=== PATIENT | female | born 1975 | race Two or more races ===

== ENCOUNTER 2017-06-09 01:36 | Inpatient (IN) | payer OTHER ==
[2017-06-09] MEDS ORDERED: DEXTROSE 5%-LACTATED RINGERS 1,000 ML IV SCH ×3 (02:00→07:45)
[2017-06-09 03:38] LABS: BASOPHIL 0.5 % (0-2.0); EOSINOPHIL 0.7 % (0-4.5); MCH 31.5 pg (25.7-33.7); MCHC 34.3 g/dl (32.0-36.0); MEAN CELL VOLUME 91.8 fl (80-96); MEAN PLT VOLUME 9.6 fl (7.5-11.1); NEUTROPHILS 58.8 % (42.8-82.8); PLATELET COUNT 158 K/MM3 (134-434); RDW 13.8 % (11.6-15.6); WHITE BLOOD COUNT 5.6 K/mm3 (4.0-10.0)
[2017-06-09 03:47] VITALS: BMI 28.6
[2017-06-09 03:55] LABS: INR 0.92 (0.82-1.09); PROTHROMBIN TIME (PATIENT) 10.1 SEC (9.98-11.88)
[2017-06-09 03:57] LABS: ACTIVATED PTT 28.3 SECONDS (26.9-34.4)
[2017-06-09 03:59] LABS: ANION GAP 12 (8-16); CALCIUM 8.8 mg/dL (8.5-10.1); CO2 21 mmol/L (21-32); CREATININE 0.8 mg/dL (0.55-1.02); GLUCOSE,RANDOM 108 mg/dL (74-106)
[2017-06-09 04:18] LABS: HIV 1 & 2 AB NEGATIVE; HIV 1 AGp24 NEGATIVE
[2017-06-09] MEDS ORDERED: DINOPROSTONE 10 MG VAGINAL SUPPOSITORY VG ONE ×2 (07:20→22:20)
[2017-06-09] MEDS ORDERED: PROMETHAZINE HCL 25 MG/1 ML VIAL IVPUSH ONE (07:36)
[2017-06-09] MEDS ORDERED: BUTORPHANOL TARTRATE 1 MG/ML VIAL IVPB ONE (07:36)
--- NOTE | 2017-06-09 07:47 | HP ---
Past Medical History - Primary Care Physician PCP:: Shelby Hartman - Admission Chief Complaint: 41 yrs , 40.4 weeks IUP, admitted for induction of labor, sent from [facility]. pt arrived in AM c/o pain , but uc are no longer felt History of Present Illness: PNC at [facility] . Wt gain 17 lbs Work UP : O Pos, Rpr nr, Rubella immune, Hbsag Neg, Quantiferon neg, Pap NILM, Gc/Ct neg, , , HIV neg, 1 Hr Gtt 100 GBS neg , , sickle neg, AMA seen by MFM , records of sono not available. NT screen AFP or Materna-T21 results unknown MD notes mention sono on 02/08 sono 23.2 weeks 52%tile growth, no longer previa EDC assigned 06/05/2017 03/29/17 sono 30.2 weeks, , post, marginal previa, , efw47%tile 04/19/17 sono 33.2 , 75%tile, , no longer previa, lo lying placenta post 05/10. sono 36.2 weeks, 76%tile growth, no longer lo lying placenta 06/05/17 sono not available History Source: Patient, Medical Record - Past Medical History MANAGER MERCHANDISING: No: Migraine, Seizure Cardiovascular: No: HTN Pulmonary: No: Asthma, COPD Gastrointestinal: Yes: Constipation Hepatobiliary: No: Hepatitis B Renal/: No: UTI ...: 8 ...Para: 3 ...Term: 3 ...: 0 ...Spon : 0 ...Induced : 4 ...Multiple Gestation: 0 ...LMP: 06/16/16 (mistaken dates ) ...EDC by Sono: 06/05/17 (40.4 weeks ) Additional OB History: G1 1996 Ind Ab 8 weeks. G2 05/08/1998 40 weeks, 6' .NCB epidural taken. G3 1999 Ind ab 4 weks. G4 04/26/2001 40 weeks, 6'15 " [facility], [place]. G5 2005 Ind Ab. G6 06/29/2008 40 weeks, 6'2" Home Delivery, [place]. G7 2011 Ind Ab Heme/Onc: Yes: Anemia, Other (h/o Vit D Deff). No: Sickle Cell Trait Infectious Disease: No: AIDS, HIV, STD's, Tuberculosis Psych: No: Addictions, Anxiety, Bipolar, Depression, Panic Endocrine: No: Diabetes Mellitus, Hyperthyroidism, Hypothyroidism - Past Surgical History Past Surgical History: Yes: None Hx Myomectomy: No Hx Transabdominal Cerclage: No - Smoking History Smoking history: Never smoked Have you smoked in the past 12 months: No - Alcohol/Substance Use Hx Alcohol Use: No History of Substance Use: reports: None Home Medications - Allergies Allergies/Adverse Reactions: Allergies Allergy/AdvReac Type Severity Reaction Status Date / Time No Known Allergies Allergy Verified 06/09/17 03:01 - Home Medications Home Medications: Ambulatory Orders Vit/Iron Fumarate/FA [ Tablet] 1 each PO DAILY 06/09/17 Physical Exam - Maternity Vital Signs: Vital Signs Temperature 98.0 F 06/09/17 07:00 Pulse Rate 74 06/09/17 07:00 Respiratory Rate 18 06/09/17 07:00 Blood Pressure 107/69 06/09/17 07:00 O2 Sat by Pulse Oximetry (%) Constitutional: Yes: Well Nourished Eyes: Yes: WNL HENT: Yes: WNL, Normocephalic Neck: Yes: WNL, Trachea Midline Cardiovascular: Yes: WNL, Regular Rate and Rhythm Lungs: Clear to auscultation Breast(s): Yes: WNL - Abdominal Exam/OB Fundal Height: 40 Number of Fetuses: Single Presentation: Vertex Contractions: No Regularity: Irregular Intensity: Mild Monitor Mode: External Heart Rate (range): 140 Heart Rate Location: [facility] Category: I Accelerations: Uniform Decelerations: None - Vaginal Exam/OB Vaginal Bleediing: No Speculum Exam: No Dilatation (cm): close Effacement (%): 50 Amniotic Membrane Status: Intact Presentation: Vertex/Position Station: -3 - Physical Exam Musculoskeletal: Yes: WNL Extremities: Yes: WNL. No: Calf Tenderness Edema: Yes Edema: LLE: 1+, RLE: 1+ Integumentary: Yes: WNL Deep Tendon Reflex Grade: Normal +2 ...Motor Strength: WNL Psychiatric: Yes: WNL, Alert, Oriented - Labs Lab Results: CBC, BMP 06/09/17 03:05 06/09/17 03:05 Laboratory Tests 06/09/17 06/09/17 06/09/17 03:05 03:05 03:05 INR 0.92 PTT (Actin FS) 28.3 HIV 1&2 Antibody Screen Negative HIV P24 Antigen Negative Blood Type O POSITIVE Problem List - Problems (1) Post term over 40 weeks Code(s): O48.0 - POST-TERM (2) AMA (advanced maternal age) multigravida 35+ Code(s): O09.529 - SUPERVISION OF ELDERLY MULTIGRAVIDA, UNSPECIFIED TRIMESTER Qualifiers: Trimester: third trimester Qualified Code(s): O09.523 - Supervision of elderly multigravida, third trimester (3) Elective induction of labor planned Code(s): FEP4892 - Assessment/Plan 41 yrs ( AMA), , post term 40.4 weeks , Gbs neg, admitted for induction of labor . Plan cervidil induction ( inserted at 7.20 AM) Trial of vaginal delivery
--- NOTE | 2017-06-09 22:32 | PN ---
Progress Note (short form) - Note Progress Note: cervidil was removed at 7.20 pm 10.20 pm 2nd cervidil is placed cx close, post, 50 % , NH , vx -3/-4 Selected Entries 06/09/17 21:00 Temperature 98.0 F Pulse Rate 80 Blood Pressure 106/70 pt was oferred to go home since cx is not favorable , preenting part, station is high she refused, she wishes to be delivered monotor , uc irregular 6-8 min apart, mild. FHR 140 cat-1 Problem List - Problems (1) Post term over 40 weeks Code(s): O48.0 - POST-TERM (2) AMA (advanced maternal age) multigravida 35+ Code(s): O09.529 - SUPERVISION OF ELDERLY MULTIGRAVIDA, UNSPECIFIED TRIMESTER Qualifiers: Trimester: third trimester Qualified Code(s): O09.523 - Supervision of elderly multigravida, third trimester (3) Elective induction of labor planned Code(s): LSK4108 -
--- NOTE | 2017-06-10 10:55 | PN ---
Progress Note (short form) - Note Progress Note: pt feels active FM Uc are irregular 6-7 min mild FHR 140-150 cat-1 2nd cervidil removed vaginal ex : same as before cx close , posterior, ? 50 % Mi , Vx -4 I attempted to insert De Los Santos balloon for dilatation , attempt failed pt is oferred to go home or c/section . she prefers to go home & will return to L&D for revaluation for induction on Sunday or , repeat Bpp I will do today BPP before discharging her Selected Entries 06/10/17 10:00 Temperature 98.2 F Pulse Rate 88 Blood Pressure 113/63 Problem List - Problems (1) Post term over 40 weeks Code(s): O48.0 - POST-TERM (2) AMA (advanced maternal age) multigravida 35+ Code(s): O09.529 - SUPERVISION OF ELDERLY MULTIGRAVIDA, UNSPECIFIED TRIMESTER Qualifiers: Trimester: third trimester Qualified Code(s): O09.523 - Supervision of elderly multigravida, third trimester (3) Elective induction of labor planned Code(s): [id number] -
--- NOTE | 2017-06-10 12:59 | PN ---
Progress Note (short form) - Note Progress Note: i obtained sono report , BPP report today . 06/10/17 40.4 weeks, SLIUP BPP8/8, SULTANA 13.5cm/ EFW 4548 gm Today I also got Sono report from 06/05/17 Report 40.2 weeks, bpd, average GA 38 weeks, BPP 8/8 , SULTANA 19.3 cm , EFW 9'8" Since Macrosomia is noted on sonogram, cx is not favorable, presenting part is high Vx -4 Floating , cervidil induction failed twice, no change . pt is explained She agrees for C/section today plan NPO for 8 hrs Delivery by Primary c/section Selected Entries 06/10/17 12:00 Temperature 98.0 F Pulse Rate 79 Blood Pressure 122/64 Problem List - Problems (1) Post term over 40 weeks Code(s): O48.0 - POST-TERM (2) AMA (advanced maternal age) multigravida 35+ Code(s): O09.529 - SUPERVISION OF ELDERLY MULTIGRAVIDA, UNSPECIFIED TRIMESTER Qualifiers: Trimester: third trimester Qualified Code(s): O09.523 - Supervision of elderly multigravida, third trimester (3) Elective induction of labor planned Code(s): [id number] -
[2017-06-10] MEDS ORDERED: CITRIC ACID/SODIUM CITRATE 30 ML UNIT-DOSE CUP PO ONE (13:01)
[2017-06-10] MEDS ORDERED: ELECTROLYTE-148 SOLN 1,000 ML IV SCH (13:15)
[2017-06-10] MEDS ORDERED: ELECTROLYTE-148 SOLN 500 ML IV ONE (18:00)
[2017-06-10] MEDS ORDERED: PHENYLEPHRINE HCL 10 MG/1 ML SINGLE DOSE VIAL ONE (19:57)
[2017-06-10 21:22] LABS: ARTERIAL BLD GAS O2 SATURATION 16.5 % (90-98.9); ARTERIAL BLOOD GAS BASE EXCESS -1.4 meq/l (-2-2); ARTERIAL BLOOD GAS HCO3 25.4 meq/L (22-26)
[2017-06-10 21:24] LABS: ARTERIAL BLOOD GAS PO2 15.4 mmHg (80-100)
[2017-06-10 21:26] LABS: VENOUS BLOOD GAS HCO3 24.7 meq/L (19-25); VENOUS PH 7.31 (7.32-7.42)
[2017-06-10] MEDS ORDERED: morphine SULFATE/Preservative Free 0.5 MG/ML (1cc Syringe) SPIN ONE (21:42)
[2017-06-10] MEDS ORDERED: ONDANSETRON 4 MG/2 ML VIAL IVPB PRN (21:42)
[2017-06-10] MEDS ORDERED: IBUPROFEN 800 MG/8 ML IJ IVPB PRN (22:02)
[2017-06-10] MEDS ORDERED: METHYLERGONOVINE MALEATE 0.2 MG/1 ML AMP IM PRN (22:02)
[2017-06-10] MEDS: D5W-LR W/ 20 UNITS OXYTOCIN 1,000 ML IV SCH (22:35)
[2017-06-11] MEDS ORDERED: ceFAZolin SODIUM 1 GM VIAL ONE ×3 (01:16→17:13)
[2017-06-11] MEDS ORDERED: DEXTROSE 5%-WATER - 50 ML IVPB ONE ×3 (01:16→17:13)
[2017-06-11] MEDS: CEFAZOLIN 1 GM in DEXTROSE 5%-WATER - 50 ML IVPB SCH ×3 (01:24→17:20)
--- NOTE | 2017-06-11 01:39 | PN ---
Delivery - Delivery Section: Primary, Low Flap Transverse (postterm (40.5 weks), failed Induction of labor, macrosomia, High head at term) Type of Anesthesia: Spinal Episiotomy/Laceration: None EBL (cc): 800 (guerra out put 100 ml ashly color) Delivery, Single - Stages of Labor Date of Delivery: 06/10/17 Time of Delivery: 20:54 Time Placenta Delivered: 20:55 Placenta: Yes: Manual Removal, Uterine Exploration - Condition of Engineer Systems/Fitness Centre Manager Present: Yes Name: Louisa Mcconnell Gender: Female Weight: 9 lb 1 oz Position: Left, OP Total Hours ROM (Hrs/Mins): 2m polyhydramnios noted - 1 Minute Total Score: 9 5 Minutes Total Score: 9 - Feeding Plan Initial Plan: Elected not to breastfeed exclusively throughout hospitalization Remarks - Remarks Remarks: 41 yrs , 40.5 weeks gestation admitted for induction of labor on 06/09/17 cervidil inserted on 06/09/17 twice 14 hrs apart after 24 hrs of cervidil induction no change in cx close, post, 50% , vx -3/-4 BPP & sono 06/10 efw 4548 gm , station high , pt agreed for c/section Intraop course uneventful
--- NOTE | 2017-06-11 01:48 | OP ---
Operative Note - Note: Operative Date: 06/10/17 Pre-Operative Diagnosis: post term pregn, 40.5 weeks, failed Induction of labor , macrosomia, High head at term Operation: primary LFTC/section Findings: 06/10/17 TOB 20.54 hr, 9/9, LOP position, Wt 9'1" Both tubes & ovaries normal large amount of fluid ( polyhydramnios) Both tubes & ovaries normal Dr Mcconnell Telecommunication Tower Technician present in the OR Iv Ancef 1 gm prior to Incision was given Surgeon: Shelby Hartman Healthcare Insurance Sales Agent: Thong Johns Anesthesiologist/CARBON PAPER INTERLEAFER: Moises Oconnor Anesthesia: Spinal Specimens Removed: placenta. cord segment for cord gas. cord blood Estimated Blood Loss (mls): 800 Drains, Volume Out (mls): 100 (guerra ashly color ) Fluid Volume Replaced (mls): 1,500 (iv 40 Iu Pitocin In 1000 ml given, Methergine 0..2 mg ) Operative Report Dictated: Yes
[2017-06-11] MEDS ORDERED: CEFAZOLIN 1 GM/D5W 50 ML IVPB SCH (02:00)
[2017-06-11] MEDS: D5W-LR W/ 20 UNITS OXYTOCIN 1,000 ML IV SCH (07:34)
--- NOTE | 2017-06-11 07:35 | OP ---
DATE OF OPERATION: 06/10/2017 PREOPERATIVE DIAGNOSIS: Post term 40.5 weeks, failed induction of labor. Macrosomia . OPERATION DONE: Primary low flap transverse section. SURGEON: Shelby Hartman MD CUSHION FORMER SURGEON: CAMELIA Bullock ANESTHESIOLOGIST: Moises Oconnor MD ANESTHESIA: Spinal. FINDINGS: This is a 41-year-old 8, para 3-0-4-3, was 40.5 weeks, was admitted for induction of labor. Cervidil insertion twice was done, and there was no change in the cervix. Cervix was closed, posterior. The head was high, -3, -4 station. Biophysical profile repeated, and it gave the estimated weight of 4548 g, so it was decided to deliver the patient by . PROCEDURE: Patient is taken to the operating room. Abdomen was shaved, prepped, De Los Santos catheter was placed. A spinal anesthesia was given. She was placed in supine position. Abdomen was painted and draped in usual manner. Pfannenstiel incision was made through skin and subcutaneous tissue. Anterior rectus sheath was incised transversely. Bleeding points were clamped and cauterized. The rectus muscle was from the rectus sheath. Parietal peritoneum was opened vertically. The lower flap by the peritoneum was incised transversely. Lower uterine segment was incised transversely. Amniotic fluid was clear, and the baby was delivered from LOP position at 2054 hours on June 10, 2017, baby girl. Baby's weight was 9 pounds 1 ounce, and baby's Apgars were 9, 9. Dr. Mcconnell, network planner, was present in the room. Cord was clamped, cut. Cord blood was collected, and also the cord segment was sent for cord blood gases, and then placenta was removed colonoscopy with the membranes. Uterine cavity was cleaned. The uterus was soft and not millicent, so anesthesiologist was requested to put 40 units Pitocin in 1000 mL of the IV fluids. Uterus bimanual massage was given, then uterine incision was closed in 2 layers. First layer was a continuous locking with Biosyn 0 suture. Second layer was a continuous intermittent locking with Biosyn 0 suture. Vertical mattress sutures were taken and the bladder peritoneum was closed with a Biosyn 0 suture. Both tubes and ovaries were normal, and the uterus was placed back into the peritoneal cavity. Irrigation was done. Sponge, instrument, and needle count was correct, and closure of the abdomen was done. Parietal peritoneum was closed with Vicryl 2-0 suture, and muscles were approximated together with interrupted sutures. Hemostasis was checked underneath the rectus sheath flaps. Anterior rectus sheath was closed with a Vicryl 0 continuous suture. Hemostasis was checked in subcutaneous tissue, and then the skin was approximated with yi. Subcutaneous tissue also some interrupted sutures were taken with the Biosyn 0 suture. Estimated blood loss was 800 mL. Urine output intraoperatively was 100 mL. She received IV Ancef 1 g prior to the incision. Tam [id number]
--- NOTE | 2017-06-11 08:14 | PN ---
Progress Note (short form) - Note Progress Note: Post op day#1.S/P C section under spinal anesthesia with duramorph uneventful.Patient stable and c/o pain score of 2-3/10 for which she is on medication.No any anesthesia related problem.Patient DC from the anesthesia care.
[2017-06-11 08:56] LABS: BASOPHIL 0.1 % (0-2.0); MCH 31.4 pg (25.7-33.7); MEAN CELL VOLUME 92.4 fl (80-96); MEAN PLT VOLUME 9.5 fl (7.5-11.1); NEUTROPHILS 75.7 % (42.8-82.8); PLATELET COUNT 126 K/MM3 (134-434)
--- NOTE | 2017-06-11 09:17 | PN ---
Post Progress Note - Subjective Subjective: no c/o pain , no itching Post Day: 1 Type of Delivery: Primary C/S Vital Signs: Vital Signs Temperature 97.7 F 06/11/17 06:00 Pulse Rate 69 06/11/17 06:00 Respiratory Rate 18 06/11/17 06:00 Blood Pressure 113/67 06/11/17 06:00 O2 Sat by Pulse Oximetry (%) 100 06/10/17 22:55 Breast Exam: Yes: Soft, Other (plans to BF ). No: Engorged Uterus: Yes: Fundus Firm, Fundus below umbilicus, Non-tender Incision: Yes: Dressing dry and intact. No: Redness, Oozing Abdomen/GI: Yes: Abdomen soft, Tender, Tolerating PO (clear liquids ). No: Abdominal Distention, Passing flatus Lochia: Yes: Rubra Lochia, amount: Moderate Extremities: Yes: Calves non-tender (scd in situ ) Perineum: Yes: Intact Activity: Other (not oob yet ) - Labs Labs: CBC WBC 11.0 K/mm3 (4.0-10.0) H D 06/11/17 08:00 RBC 3.36 M/mm3 (3.60-5.2) L 06/11/17 08:00 Hgb 10.5 GM/dL (10.7-15.3) L 06/11/17 08:00 Hct 31.0 % (32.4-45.2) L 06/11/17 08:00 MCV 92.4 fl (80-96) 06/11/17 08:00 MCH 31.4 pg (25.7-33.7) 06/11/17 08:00 MCHC 34.0 g/dl (32.0-36.0) 06/11/17 08:00 RDW 14.0 % (11.6-15.6) 06/11/17 08:00 Plt Count 126 K/MM3 (134-434) L D 06/11/17 08:00 MPV 9.5 fl (7.5-11.1) 06/11/17 08:00 Neutrophils % 75.7 % (42.8-82.8) D 06/11/17 08:00 Lymphocytes % 13.1 % (8-40) D 06/11/17 08:00 Monocytes % 11.1 % (3.8-10.2) H 06/11/17 08:00 Eosinophils % 0.0 % (0-4.5) D 06/11/17 08:00 Basophils % 0.1 % (0-2.0) 06/11/17 08:00 Other Findings, Remarks: rs cta i/O out put 300 ml, ashly color Problem List - Problems (1) Post term over 40 weeks Code(s): O48.0 - POST-TERM (2) AMA (advanced maternal age) multigravida 35+ Code(s): O09.529 - SUPERVISION OF ELDERLY MULTIGRAVIDA, UNSPECIFIED TRIMESTER Qualifiers: Trimester: third trimester Qualified Code(s): O09.523 - Supervision of elderly multigravida, third trimester (3) Elective induction of labor planned Code(s): CFB2200 - Assessment/Plan stable plan ct po care encourage po fluids. oob when guerra is taken out deep breathing
[2017-06-11] MEDS: ENOXAPARIN NA (PORCINE) 40 MG/0.4 ML DISP.SYRIN SQ SCH (10:26)
[2017-06-11] MEDS ORDERED: oxyCODONE HCL 5 MG TABLET PO PRN (12:00)
[2017-06-11] MEDS: IBUPROFEN 600 MG TABLET (FP) PO PRN ×2 (12:29→18:46)
[2017-06-11] MEDS: SIMETHICONE 80 MG TAB.CHEW (FP) PO PRN ×2 (12:29→18:46)
[2017-06-11] MEDS: ACETAMINOPHEN 325 MG TABLET (FP) PO PRN ×2 (12:30→18:47)
[2017-06-11] MEDS ORDERED: BISACODYL 10 MG SUPP.RECT RC PRN (22:02)
[2017-06-11] MEDS: SENNOSIDES/DOCUSATE COMBO (SENNA PLUS) TABLET (UD) PO PRN (22:27)
[2017-06-12] MEDS: ACETAMINOPHEN 325 MG TABLET (FP) PO PRN (04:47)
[2017-06-12] MEDS: SIMETHICONE 80 MG TAB.CHEW (FP) PO PRN ×2 (04:47→22:06)
[2017-06-12] MEDS: IBUPROFEN 600 MG TABLET (FP) PO PRN ×2 (04:52→22:10)
--- NOTE | 2017-06-12 08:14 | PN ---
Post Progress Note - Subjective Subjective: doing well, sitting up in bed, minmal lochia, no victor Post Day: 2 Type of Delivery: Primary C/S Vital Signs: Vital Signs Temperature 98.1 F 06/11/17 22:00 Pulse Rate 69 06/11/17 22:00 Respiratory Rate 18 06/11/17 22:00 Blood Pressure 117/66 06/11/17 22:00 O2 Sat by Pulse Oximetry (%) 100 06/10/17 22:55 Uterus: Yes: Fundus Firm Incision: Yes: Dressing dry and intact Abdomen/GI: Yes: Abdomen soft Lochia: Yes: Rubra Lochia, amount: Small Extremities: Yes: Calves non-tender Perineum: Yes: Intact Activity: Ambulating - Labs Labs: CBC WBC 11.0 K/mm3 (4.0-10.0) H D 06/11/17 08:00 RBC 3.36 M/mm3 (3.60-5.2) L 06/11/17 08:00 Hgb 10.5 GM/dL (10.7-15.3) L 06/11/17 08:00 Hct 31.0 % (32.4-45.2) L 06/11/17 08:00 MCV 92.4 fl (80-96) 06/11/17 08:00 MCH 31.4 pg (25.7-33.7) 06/11/17 08:00 MCHC 34.0 g/dl (32.0-36.0) 06/11/17 08:00 RDW 14.0 % (11.6-15.6) 06/11/17 08:00 Plt Count 126 K/MM3 (134-434) L D 06/11/17 08:00 MPV 9.5 fl (7.5-11.1) 06/11/17 08:00 Neutrophils % 75.7 % (42.8-82.8) D 06/11/17 08:00 Lymphocytes % 13.1 % (8-40) D 06/11/17 08:00 Monocytes % 11.1 % (3.8-10.2) H 06/11/17 08:00 Eosinophils % 0.0 % (0-4.5) D 06/11/17 08:00 Basophils % 0.1 % (0-2.0) 06/11/17 08:00 Assessment/Plan as above continue post op care oob reg diet
[2017-06-12] MEDS ORDERED: FERROUS SO4 325 MG TABLET (FP) PO SCH (10:00)
[2017-06-12] MEDS: SENNOSIDES/DOCUSATE COMBO (SENNA PLUS) TABLET (UD) PO PRN (22:10)
[2017-06-12] MEDS: oxyCODONE HCL 5 MG TABLET PO PRN (22:11)
[2017-06-13 08:57] LABS: BASOPHIL 0.5 % (0-2.0); EOSINOPHIL 0.2 % (0-4.5); MCH 31.2 pg (25.7-33.7); MEAN CELL VOLUME 91.8 fl (80-96); MEAN PLT VOLUME 9.1 fl (7.5-11.1); NEUTROPHILS 72.8 % (42.8-82.8); PLATELET COUNT 154 K/MM3 (134-434); RDW 14.3 % (11.6-15.6); WHITE BLOOD COUNT 8.7 K/mm3 (4.0-10.0)
[2017-06-13] MEDS: ENOXAPARIN NA (PORCINE) 40 MG/0.4 ML DISP.SYRIN SQ SCH (09:47)
[2017-06-13] MEDS: PRENATAL VITAMINS W/ FOLIC ACID TABLET (FP) PO SCH (09:47)
--- NOTE | 2017-06-13 10:10 | PN ---
Post Progress Note - Subjective Subjective: c/o pain last night , score 810. presently 11/10 Post Day: 3 Type of Delivery: Primary C/S Vital Signs: Vital Signs Temperature 99.2 F 06/13/17 07:30 Pulse Rate 87 06/13/17 07:30 Respiratory Rate 20 06/13/17 07:30 Blood Pressure 105/75 06/13/17 07:30 O2 Sat by Pulse Oximetry (%) 100 06/10/17 22:55 Breast Exam: Yes: Other (BF & bottle feeding ). No: Soft, Engorged Uterus: Yes: Fundus Firm, Fundus below umbilicus, Non-tender Abdomen/GI: Yes: Abdomen soft, Passing flatus (bm done ), Tolerating PO (diet ) . No: Abdominal Distention, Tender Lochia: Yes: Rubra Lochia, amount: Moderate Extremities: Yes: Calves non-tender Perineum: Yes: Intact Activity: Ambulating - Labs Labs: CBC WBC 8.7 K/mm3 (4.0-10.0) 06/13/17 07:35 RBC 3.12 M/mm3 (3.60-5.2) L 06/13/17 07:35 Hgb 9.7 GM/dL (10.7-15.3) L 06/13/17 07:35 Hct 28.6 % (32.4-45.2) L 06/13/17 07:35 MCV 91.8 fl (80-96) 06/13/17 07:35 MCH 31.2 pg (25.7-33.7) 06/13/17 07:35 MCHC 34.0 g/dl (32.0-36.0) 06/13/17 07:35 RDW 14.3 % (11.6-15.6) 06/13/17 07:35 Plt Count 154 K/MM3 (134-434) D 06/13/17 07:35 MPV 9.1 fl (7.5-11.1) 06/13/17 07:35 Neutrophils % 72.8 % (42.8-82.8) 06/13/17 07:35 Lymphocytes % 16.4 % (8-40) D 06/13/17 07:35 Monocytes % 10.1 % (3.8-10.2) 06/13/17 07:35 Eosinophils % 0.2 % (0-4.5) D 06/13/17 07:35 Basophils % 0.5 % (0-2.0) D 06/13/17 07:35 Problem List - Problems (1) Post term over 40 weeks Code(s): O48.0 - POST-TERM (2) AMA (advanced maternal age) multigravida 35+ Code(s): O09.529 - SUPERVISION OF ELDERLY MULTIGRAVIDA, UNSPECIFIED TRIMESTER Qualifiers: Trimester: third trimester Qualified Code(s): O09.523 - Supervision of elderly multigravida, third trimester (3) Elective induction of labor planned Code(s): [id number] - Assessment/Plan anemia stable, & counselled . ' discharge tomorrow.
--- NOTE | 2017-06-13 10:26 | DS ---
Physical Exam-TILLER MAN Vital Signs: Vital Signs Temperature 99.2 F 06/13/17 07:30 Pulse Rate 87 06/13/17 07:30 Respiratory Rate 20 06/13/17 07:30 Blood Pressure 105/75 06/13/17 07:30 O2 Sat by Pulse Oximetry (%) 100 06/10/17 22:55 Constitutional: Yes: Well Nourished, Pallor, Other (c/o incision pain) Eyes: Yes: WNL HENT: Yes: WNL, Normocephalic Neck: Yes: WNL Cardiovascular: Yes: WNL, Regular Rate and Rhythm Respiratory: Yes: WNL, Tachypnea Gastrointestinal: Yes: WNL, Normal Bowel Sounds, Other (bm done). No: Distention Renal/: Yes: WNL, Other (voiding without difficuty). No: CVA Tenderness - Left, CVA Tenderness - Right ....Post : Yes: Uterus firm, Uterus non-tender, Moderate lochia rubra Breast(s): Yes: WNL (BF & bottle feeding) Musculoskeletal: Yes: WNL Extremities: Yes: WNL. No: Calf Tenderness Edema: LLE: 1+, RLE: 1+ Integumentary: Yes: WNL Wound/Incision: Yes: Clean/Dry, Well Approximated, Open to air, Jose Removed (on 06/14/17). No: Draining, Reddened, Bleeding Neurological: Yes: WNL, Alert, Oriented ...Motor Strength: WNL Psychiatric: Yes: WNL, Alert, Oriented Labs: CBC, BMP 06/13/17 07:35 06/09/17 03:05 Delivery - Delivery Section: Primary, Low Flap Transverse (postterm (40.5 weks), failed Induction of labor, macrosomia, High head at term) Type of Anesthesia: Spinal Episiotomy/Laceration: None EBL (cc): 800 (guerra out put 100 ml ashly color) Delivery, Single - Stages of Labor Date of Delivery: 06/10/17 Time of Delivery: 20:54 Time Placenta Delivered: 20:55 Placenta: Yes: Manual Removal, Uterine Exploration - Condition of Infant Batch Mixer/Dog Races Manager Present: Yes Name: Louisa Mcconnell Gender: Female Weight: 9 lb 1 oz Position: Left, OP Total Hours ROM (Hrs/Mins): 2m polyhydramnios noted - 1 Minute Total Score: 9 5 Minutes Total Score: 9 - Feeding Plan Initial Plan: Elected not to breastfeed exclusively throughout hospitalization Remarks - Remarks Remarks: 41 yrs , 40.5 weeks gestation admitted for induction of labor on 06/09/17 cervidil inserted on 06/09/17 twice 14 hrs apart after 24 hrs of cervidil induction no change in cx close, post, 50% , vx -3/-4 BPP & sono 06/10 efw 4548 gm , station high , pt agreed for c/section Intraop course uneventful . post op course uneventful Anemia counselled discharge 06/14/17 Discharge Summary Reason For Visit: ADMIT INDUCTION Current Active Problems AMA (advanced maternal age) multigravida 35+ (Acute) Anemia (Acute) Delivery by emergency section (Acute) Elective induction of labor planned (Acute) Post term over 40 weeks (Acute) Condition: Stable - Instructions Diet, Activity, Other Instructions: Post Instructions DIET: Continue good diet high in protein, calcium, and iron rich foods. Drink at least eight (8) glasses of water daily in addition to other fluids. ct Regular diet MEDICATIONS: Continue vitamins and iron as previously directed. Motrin and Tylenol may be taken for minor discomfort. ACTIVITY: Mild to moderate exercise may be started in two (2) weeks. Take frequent rest periods. Resume normal activity after six (6) week check up. WOUND CARE OF OPERATIVE SITE: Continue use of perineal bottle until vaginal discharge stops. Keep area clean. Shower daily. Keep abdominal wound dry. Report any drainage or redness to physician. Tub baths, tampons and douches are not permitted for [address] Breast feeding & or Bottle feeding BREAST CARE: (For those that are not breast feeding): If engorgement occurs: Wear tight fitting bra. Take Tylenol or Motrin for pain. Apply cold packs (ice in bags to each breast ) FAMILY PLANNING: There are many control alternatives to pursue and they should be discussed at your first office visit. You may resume sexual activity after your six (6) week check up. (Remember, is not a contraceptive) NEXT PHYSICIAN APPOINTMENT: Be certain to call for a one (1) week appointment, unless otherwise directed. Call Clinic or got to Emergency Dept if you have any of the following: Heavy vaginal bleeding Painful urination Leg pain Unusual odor noted to vaginal bleeding High fever Red streaking noted on breast Referrals: Shelby Hartman MD [Staff Physician] - Disposition: HOME - Home Medications Comprehensive Discharge Medication List: Ambulatory Orders Vit/Iron Fumarate/FA [ Tablet] 1 each PO DAILY 06/09/17 Acetaminophen [Tylenol .Regular Strength -] 500 mg PO Q4H PRN #30 tablet Ferrous Sulfate [Feosol] 325 mg PO BID #60 tab 06/13/17 Ibuprofen [Motrin -] 600 mg PO Q4H PRN #30 tablet 06/13/17 Vitamins (Sjr) - 1 tab PO DAILY #30 tablet 06/13/17
[2017-06-13] MEDS: FERROUS SO4 325 MG TABLET (FP) PO SCH ×2 (11:46→18:06)
--- NOTE | 2017-06-13 16:17 | PATH ---
Surgical Pathology Report Patient Name: ASIYA BRUCE Med. Rec. #: [id number] /Age/Gender: 1975 (Age: 41) / F Account: [id number] Location: [facility] OBS/FLAVOR TANK TENDER Taken: 06/10/2017 Received: 06/11/2017 Reported: 06/13/2017 Physicians: Shelby Hartman M.D. Specimen(s) Received PLACENTA Clinical History , 40.5 weeks; x3, VTOP x4, macrosomia, advanced maternal age, post term Repeat c/section Final Diagnosis PLACENTA, DELIVERY: FOCALLY DISRUPTED THIRD TRIMESTER PLACENTA WITH MILD INCREASE IN PREVILLOUS, PERIVILLOUS, AND PRECHORIONIC FIBRIN DEPOSITION, FOCAL CALCIFICATIONS, THREE VESSEL UMBILICAL CORD, AND PLACENTAL MEMBRANES WITH FOCAL AMNION HYPERPLASIA. Electronically Signed Tay Majano M.D. Gross Description The specimen is received fresh, labeled "placenta" and is a 434 gram, 20.0 x 16.5 x 2.0 cm placenta with attached membranes and umbilical cord. The attached membranes are hernandez, translucent with focal opacities and insert marginally. The umbilical cord measures 8 cm in length and averages 1.3 cm in diameter. The cord inserts eccentrically, 6 cm to the nearest margin. No true knots or strictures are identified. Cut surface of the umbilical cord reveals 3 vessels. The surface is khan-blue with fibrin deposition and appropriate caliber vessels. The maternal surface is red-brown with focal defects. Sectioning reveals red-brown, spongy parenchyma. No focal lesions are identified. Labor Utilization Superintendent sections are submitted in three cassettes as follows: 1- membrane rolls and umbilical cord; 2-3- full thickness sections of placenta. /06/12/2017 [facility]06/12/2017
[2017-06-13] MEDS: IBUPROFEN 600 MG TABLET (FP) PO PRN (18:07)
[2017-06-13] MEDS: ACETAMINOPHEN 325 MG TABLET (FP) PO PRN ×2 (18:08→21:18)
[2017-06-13] MEDS: SIMETHICONE 80 MG TAB.CHEW (FP) PO PRN ×2 (18:09→21:19)
[2017-06-13] MEDS: oxyCODONE HCL 5 MG TABLET PO PRN (21:18)
[2017-06-14 09:03] VITALS: BP 125/87; PULSE 75; TEMP 97.9
[2017-06-14] MEDS: ENOXAPARIN NA (PORCINE) 40 MG/0.4 ML DISP.SYRIN SQ SCH (09:14)
[2017-06-14] MEDS: PRENATAL VITAMINS W/ FOLIC ACID TABLET (FP) PO SCH (09:14)
--- NOTE | 2017-06-14 09:24 | PN ---
Post Progress Note - Subjective Subjective: 41 yo Para 4 status post , seen and evaluated. Doing well. Post Day: 4 Type of Delivery: Primary C/S Vital Signs: Vital Signs Temperature 97.9 F 06/14/17 08:58 Pulse Rate 75 06/14/17 08:58 Respiratory Rate 20 06/14/17 08:58 Blood Pressure 125/87 06/14/17 08:58 O2 Sat by Pulse Oximetry (%) 100 06/10/17 22:55 Breast Exam: Yes: Soft Uterus: Yes: Fundus Firm Incision: Yes: Jose intact Abdomen/GI: Yes: Abdomen soft, Tolerating PO Lochia: Yes: Rubra Lochia, amount: Small Extremities: Yes: Calves non-tender Perineum: Yes: Intact Activity: Ambulating - Labs Labs: CBC WBC 8.7 K/mm3 (4.0-10.0) 06/13/17 07:35 RBC 3.12 M/mm3 (3.60-5.2) L 06/13/17 07:35 Hgb 9.7 GM/dL (10.7-15.3) L 06/13/17 07:35 Hct 28.6 % (32.4-45.2) L 06/13/17 07:35 MCV 91.8 fl (80-96) 06/13/17 07:35 MCH 31.2 pg (25.7-33.7) 06/13/17 07:35 MCHC 34.0 g/dl (32.0-36.0) 06/13/17 07:35 RDW 14.3 % (11.6-15.6) 06/13/17 07:35 Plt Count 154 K/MM3 (134-434) D 06/13/17 07:35 MPV 9.1 fl (7.5-11.1) 06/13/17 07:35 Neutrophils % 72.8 % (42.8-82.8) 06/13/17 07:35 Lymphocytes % 16.4 % (8-40) D 06/13/17 07:35 Monocytes % 10.1 % (3.8-10.2) 06/13/17 07:35 Eosinophils % 0.2 % (0-4.5) D 06/13/17 07:35 Basophils % 0.5 % (0-2.0) D 06/13/17 07:35 Problem List - Problems (1) Status post primary low transverse section Code(s): Z98.891 - HISTORY OF UTERINE SCAR FROM PREVIOUS SURGERY Assessment/Plan Status post Stable D/C Home
[2017-06-14] MEDS: SIMETHICONE 80 MG TAB.CHEW (FP) PO PRN (12:25)
[2017-06-14] MEDS: IBUPROFEN 600 MG TABLET (FP) PO PRN (12:26)
[2017-06-14] MEDS: ACETAMINOPHEN 325 MG TABLET (FP) PO PRN (12:26)
[2017-06-14] MEDS: FERROUS SO4 325 MG TABLET (FP) PO SCH (12:26)
== END 2017-06-14 13:00 | disposition home or self-care (01) | DRG 540 ==
LOC: JLDR 01:36 → J3W 06-10 23:48
PROVIDERS: ADMIT Obstetrics & Gynecology; ATTEND Obstetrics & Gynecology
PROC: 3E0P7GC Introduction of Other Therapeutic Substance into Female Reproductive, Via Natural or Artificial Opening (ICD-10-PCS; 2017-06-09)
PROC: 10D00Z1 Extraction of Products of Conception, Low, Open Approach (ICD-10-PCS; principal; 2017-06-10)
DX: O48.0 Post-term pregnancy (principal); Z3A.40 40 weeks gestation of pregnancy; O61.0 Failed medical induction of labor; O36.60X0 Maternal care for excessive fetal growth, unspecified trimester, not applicable or unspecified; O99.02 Anemia complicating childbirth; Z37.0 Single live birth
CPT/HCPCS: 36415; 36600; 76819-TC; 80048; 82803; 85025; 85610; 85730; 86593; 86850; 86900; 86901; 87389; 88307-TC